=== PATIENT | female | born 1975 | race Caucasian/White ===

== ENCOUNTER 2017-02-20 06:37 | Emergency (ER) | payer MEDICAID, OTHER ==
[~2017-02-20] VITALS: Ht 165.1 cm; Wt 82.5 kg
[~2017-02-20 06:37] MED LIST: IBUP800T25 PO
[2017-02-20 06:40] VITALS: Ht 165.1 cm; Wt 82.5 kg
[2017-02-20] MEDS ORDERED: IBUPROFEN 800 MG TAB PO ONE (07:00)
[2017-02-20] MEDS ORDERED: IBUP-1542 PO (07:53)
--- NOTE | 2017-02-20 08:06 | ERD ---
ER Documentation Chief Complaint Date/Time DATE: 02/20/17 TIME: 08:01 Chief Complaint Complains of left foot pain x 10 days HPI Patient is a 41-year-old female with no medical problems who presents with left sided ankle and foot pain. She has had this pain for 10 days and it is getting worse. She denies trauma. She has had no treatment as of yet. She has no fevers. She does not currently have a primary doctor. She has pain on the bottom of her foot and into the back of her heel as well. ROS All systems reviewed and are negative except as per history of present illness. Medications Home Meds Active Scripts Ibuprofen* (Motrin*) 600 Mg Tab, 600 MG PO Q8, #30 TAB Prov:QIANA DONAHUE MD 02/20/17 Ibuprofen* (Motrin*) 800 Mg Tab, 800 MG PO Q6, #30 TAB Prov:JADE MOON PA-C 05/02/15 Allergies Allergies: Coded Allergies: No Known Drug Allergies (Verified Allergy, 01/06/12) PMhx/Soc History of Surgery: Yes () Anesthesia Reaction: No Hx Neurological Disorder: No Hx Respiratory Disorders: No Hx Cardiac Disorders: No Hx Psychiatric Problems: No Hx Miscellaneous Medical Probl: No Hx Alcohol Use: No Hx Substance Use: No Hx Tobacco Use: No Smoking Status: Never smoker FmHx Family History: diabetes Physical Exam Vitals Vital Signs Date Time Temp Pulse Resp B/P Pulse Ox O2 Delivery O2 Flow Rate FiO2 02/20/17 06:40 98.0 74 20 112/66 98 Physical Exam Const: No acute distress Head: Atraumatic Eyes: Normal Conjunctiva ENT: Normal External Ears, Nose and Mouth. Neck: Full range of motion..~ No meningismus. Resp: Clear to auscultation bilaterally Cardio: Regular rate and rhythm, no murmurs Abd: Soft, non tender, non distended. Normal bowel sounds Skin: No petechiae or rashes Back: No midline or flank tenderness Ext: Patient has pain to base of left foot and back of left heel Neur: Awake and alert Psych: Normal Mood and Affect Results 24 hrs Current Medications Medications (Trade) Dose Ordered Sig/Payton Route PRN Reason Start Time Stop Time Status Last Admin Dose Admin Ibuprofen (Motrin) 800 mg ONCE ONCE PO 02/20/17 07:00 02/20/17 07:01 DC 02/20/17 07:04 Procedures/MDM Smoking Cessation Therapy: Pt. was lectured for greater than 3 minutes on the health risks of continued smoking and the benefits of cessation. Patient is a 41-year-old female who presents with left ankle and foot pain. This may be muscular skeletal pain or plantar fasciitis. I see no signs of infection, fracture, or dislocation. I believe outpatient management is appropriate. The patient was given an Jimmy wrap and crutches. She was given ibuprofen for pain. She can take ibuprofen as needed for symptomatic relief. Splint Note Type: Jimmy wrap Location: Left ankle Indication: Left ankle and foot pain Splint Assessment: Neurovascularly intact post splint placement with good fit. Departure Diagnosis: Primary Impression: Plantar fasciitis, left Additional Impression: Foot pain Laterality: left Qualified Code: M79.672 - Left foot pain Condition: Fair Patient Instructions: What Is Plantar Fasciitis? Additional Instructions: Call your primary care doctor TOMORROW for an appointment during the next 1-2 days.See the doctor sooner or return here if your condition worsens before your appointment time. QIANA DONAHUE MD Feb 20, 2017 08:06
--- NOTE | 2017-02-20 08:17 | RADRPT ---
PROCEDURE: XR Ankle 3 Views. CLINICAL INDICATION: Left ankle pain. TECHNIQUE: AP, oblique and lateral views of the left ankle were performed. COMPARISON: None. FINDINGS: The osseous structures are intact. No destructive bony lesions are observed. Interosseous spaces a ppear normal. Small plantar calcaneal heel spur is identified. Mild potential soft tissue swelling i s seen surrounding the ankle. IMPRESSION: Mild potential soft tissue swelling surrounding the ankle. Ligamentous and tendinous injury is not e xcluded. If characterization of the ligaments and tendons is needed MRI is recommended. Plantar calcaneal heel spur. If further characterization is needed CT or MRI could be helpful. If there is high clinical suspicion for bony traumatic injury, further evaluation with CT should be considered. RPTAT: AA .Kevin Neal MD, Date Time Electronically viewed and signed by .Kevin Neal MD, on 02/20/2017 08:17 .P/
== END 2017-02-20 08:11 | disposition home or self-care (01) ==
LOC: FTE 06:37
DX: M72.2 Plantar fascial fibromatosis (principal)
CPT/HCPCS: 73610; Z7610

== ENCOUNTER 2017-07-10 23:29 | Emergency (ER) | END 2017-07-11 06:01 | disposition home or self-care (01) | DX: R07.9 Chest pain, unspecified (principal); R53.1 Weakness; R06.00 Dyspnea, unspecified; D72.829 Elevated white blood cell count, unspecified; F41.9 Anxiety disorder, unspecified; F17.210 Nicotine dependence, cigarettes, uncomplicated | CPT/HCPCS: 36415; 71010; 71275; 80048; 81001; 84484; 85025; 93005; 94664; 96374; 96375; J2060; Q9967; Z7502; Z7610 ==